=== PATIENT | male | born 1975 | race Caucasian/White ===

== ENCOUNTER 2016-03-14 01:32 | Emergency (ER) | payer SELFPAY ==
[~2016-03-14] VITALS: Ht 177.8 cm; Wt 89.7 kg
[2016-03-14 01:50] VITALS: BP 135/75; PULSE 86; RESP 18; TEMP 97.8; O2SAT 96
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
[2016-03-14] MEDS ORDERED: LIDOCAINE 1%/EPINEPHrine 1:100,000 SOLN 20 ML VIAL INFIL ONE (02:30)
== END 2016-03-14 03:32 | disposition home or self-care (01) ==
LOC: PHED 01:32
DX: S01.411A Laceration without foreign body of right cheek and temporomandibular area, initial encounter (principal); W25.XXXA Contact with sharp glass, initial encounter; Y93.9 Activity, unspecified; Y92.9 Unspecified place or not applicable
CPT/HCPCS: 12013